=== PATIENT | female | born 2005 | race Caucasian/White ===

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

== ENCOUNTER 2024-09-17 01:00 | Emergency (ER) | payer MEDICAID, BC ==
[~2024-09-17] VITALS: Ht 162.6 cm; Wt 60.7 kg
--- NOTE | 2024-09-17 01:17 | ED.PDOC ---
History of Present Illness HPI Comments 18 y/o F presents with c/o chest pain, generalized weakness, lightheadedness, and posterior neck tingling sensation, today. Patient endorses on sudden and unprovoked onset of symptoms, while at work, today. She comments on pain being tight in quality and having no prior history of symptoms in the past or any significant medical history. Denies having any shortness of breath, palpitations, dizziness, fever, chills, or other associated symptoms or modifiers at this time. Chief Complaint: Dizziness Time Seen by MD: 01:10 Primary Care Provider: fox Reviewed Notes: Nurses Notes, Medications, Allergies Allergies: Coded Allergies: NO KNOWN ALLERGIES (Unverified , 01/05/22) Information Source: Patient Mode of Arrival: Wheelchair Severity: Moderate Timing: Hours Duration: Since onset Prehospital treatment: None Past Medical History PAST MEDICAL HISTORY: Denies Surgical History: Denies all surgeries [employer] History: No Pertinent [employer] History Family History Family History: Family hx of lung ana m Social History Smoker: Non-Smoker Alcohol: Denies ETOH Use Drugs: Denies Drug Use Lives In: Home All Other Systems: Reviewed and Negative (negative unless otherwise stated in HPI) Physical Exam General Appearance: No Apparent Distress, Normal HEENT: Normal ENT Inspection, Pharynx Normal, TMs Normal Neck: Full Range of Motion, Non-Tender, Normal, Normal Inspection Respiratory: Chest Non-Tender, Lungs Clear, No Accessory Muscle Use, No Respiratory Distress, Normal Breath Sounds Cardiovascular: No Edema, No JVD, No Murmur, No Gallop, Normal Peripheral Pulses, Regular Rate/Rhythm Breast Exam: Deferred Gastrointestinal: No Organomegaly, Non Tender, No Pulsatile Mass, Normal Bowel Sounds, Soft Genitalia: Deferred Pelvic: Deferred Rectal: Deferred Extremities: No calf tenderness, Normal capillary refill, Normal inspection, Normal range of motion, Non-tender, No pedal edema Musculoskeletal : Apperance: Normal Neurologic: Alert, glove turner and former automatic II-XII nml as Tested, No Motor Deficits, Normal Affect, Normal Mood, No Sensory Deficits Cerebellar Function: Normal Reflexes: Normal Skin: Dry, Normal Color, Warm Lymphatic: No Adenopathy Was a procedure done? Was a procedure done?: No EKG EKG : Pulse Rate (adult): 102 [place]: Normal Cardiac Rhythm: ST Block: None Hypertrophy: None ST: Normal Differential Dx Considerations may include: anxiety, panic attack, vasovagal response, DC, ACS, angina, costochondritis, pericarditis, viral syndrome, URI X-Ray, Labs, Meds, VS Vital Signs Date Time Temp Pulse Resp B/P (MAP) Pulse Ox O2 Delivery O2 Flow Rate FiO2 09/17/24 03:23 98.3 105 20 131/86 (101) 99 98.3 09/17/24 02:08 102 09/17/24 01:53 98.3 105 20 131/86 (101) 99 09/17/24 01:28 102 Lab Test 09/17/24 01:20 Range/Units White Blood Count 8.9 4.4-10.8 10^3/uL Red Blood Count 4.67 4.0-5.20 10^6/uL Hemoglobin 13.9 12.2-16.2 g/dL Hematocrit 41.0 36.0-46.0 % Mean Corpuscular Volume 87.8 80.0-100.0 fL Mean Corpuscular Hemoglobin 29.8 28.0-32.0 pg Mean Corpuscular Hemoglobin Concent 34.0 32.0-36.0 g/dL Red Cell Distribution Width 12.7 11.8-14.3 % Platelet Count 268 140-450 10^3/uL Mean Platelet Volume 7.9 6.9-10.8 fL Neutrophils (%) (Auto) 51.9 37.0-80.0 % Lymphocytes (%) (Auto) 36.3 10.0-50.0 % Monocytes (%) (Auto) 6.6 0.0-12.0 % Eosinophils (%) (Auto) 4.9 0.0-7.0 % Basophils (%) (Auto) 0.3 0.0-2.0 % Neutrophils # (Auto) 4.6 1.6-8.6 10 ^3/uL Lymphocytes # (Auto) 3.2 0.4-5.4 10 ^3/uL Monocytes # (Auto) 0.6 0-1.3 10 ^3/uL Eosinophils # (Auto) 0.4 0-0.8 10 ^3/uL Basophils # (Auto) 0 0-0.2 10 ^3/uL Nucleated Red Blood Cells 0.1 % Prothrombin Time 10.9 9.3-11.8 sec Prothrombin Time INR 1.03 0.9-1.15 D-Dimer, Quantitative 0.42 0.0-0.49 mg/L FEU Sodium Level 141 136-145 mmol/L Potassium Level 3.3 L 3.5-5.1 mmol/L Chloride Level 105 98-107 mmol/L Carbon Dioxide Level 25 20-31 mmol/L Anion Gap 11 5-15 Blood Urea Nitrogen 11 9-23 mg/dL Creatinine 0.80 0.550-1.02 mg/dL Glomerular Filtration Rate Calc 109 >90 mL/min BUN/Creatinine Ratio 13.8 10.0-20.0 Serum Glucose 95 74-106 mg/dL Calcium Level 10.2 8.7-10.4 mg/dL Magnesium Level 2.1 1.6-2.6 mg/dL Total Bilirubin 0.4 0.2-1.0 mg/dL Aspartate Amino Transferase (AST) 16 13-40 U/L Alanine Aminotransferase (ALT) 12 7-40 U/L Alkaline Phosphatase 71 46-116 U/L Troponin I High Sensitivity < 3 L </=34 ng/L Total Protein 7.4 5.7-8.2 g/dL Albumin 5.2 H 3.2-4.8 g/dL Beta HCG, Quantitative 0.7 L 1.5-4.2 mIU/mL Current Medications Medications (Trade) Dose Ordered Sig/Miguel Angel Route Start Time Stop Time Status Last Admin Potassium Chloride (Klor-Con Tablet) 20 meq ONCE ONCE PO 09/17/24 03:15 09/17/24 03:16 DC 09/17/24 03:19 Time of 1ST Reevaluation: 01:40 Reevaluation 1ST: Unchanged Time of 2ND Reevaluation: 02:30 Reevaluation 2ND: Improved Patient Education/Counseling: Diagnosis, Treatment Family Education/Counseling: No Family Present Departure 1 Departure Time of Disposition: 03:00 Impression: Primary Impression: Dizziness Additional Impression: Hypokalemia Disposition: 01 HOME / SELF CARE / HOMELESS Condition: Stable Discharged With: Self Comments Dizziness with Hypokalemia Chief Complaint: Dizziness and tingling in extremities History of Present Illness: 18-year-old female presents to the Emergency Department with a 4-hour history of dizziness and tingling sensation in her extremities. Patient reports ability to tolerate oral fluids. Symptoms are concerning for possible dehydration with associated electrolyte abnormality. Review of Systems: Constitutional: Reports dizziness Neurological: Reports tingling in extremities All other systems reviewed and negative Lab Results: Potassium: 3.3 mEq/L (Low) Complete Blood Count (CBC): Within normal limits Basic Metabolic Panel: Otherwise unremarkable Imaging and Other Relevant Results: No imaging studies documented Medical Decision Making: Summary Statement: 18-year-old female presenting with acute onset dizziness and peripheral tingling, found to have mild hypokalemia. Problem List: 1. Hypokalemia (K=3.3) 2. Dizziness 3. Paresthesias 4. Possible dehydration Differential Diagnosis: 1. Dehydration 2. Electrolyte imbalance 3. Anxiety 4. Vestibular dysfunction 5. Neurological disorder ED Course: Patient received oral potassium chloride supplementation. Symptoms improved during ED observation. Patient tolerating oral fluids well. After shared decision-making discussion, patient elected for discharge home with follow-up plan. Assessment and Plan: 1. Hypokalemia (K=3.3): - Administered oral potassium chloride supplementation - Patient showing clinical improvement - Follow up with PCP for repeat potassium check 2. Dizziness and Paresthesias: - Likely secondary to hypokalemia and possible dehydration - Symptoms improved during ED visit - Continue oral hydration at home 3. Disposition: - Discharge home with PCP follow-up - Strict return precautions given - Return to ED if symptoms worsen or new symptoms develop Billing Information: ICD-10: R42 - Dizziness and giddiness ICD-10: E87.6 - Hypokalemia ICD-10: R20.2 - Paresthesia Critical Care Note Critical Care Time?: No Stability Stability form required: No Heart Score Heart Score: Heart Score Response (Comments) Value History N/A 0 EKG N/A 0 Age N/A 0 Risk Factors N/A 0 Troponin N/A 0 Total 0 I personally scribed for BLANCHE SINGER MD ([email or web address]) on 09/17/24 at 01:17. Electronically submitted by Bon Gonzalez ([email or web address]). I personally scribed for BLANCHE SINGER MD ([email or web address]) on 09/17/24 at 02:08. Electronically submitted by Bon Gonzalez ([email or web address]). BLANCHE SINGER MD Sep 17, 2024 01:17
--- NOTE | 2024-09-17 01:29 | ECG ---
[facility] Test Date: 2024-09-17 Test Time: 01:28:06 Pat Name: RUFINO HUERTAS Department: ER Room: Gender: F Electronic Communications Technician: HOLLIS : 2005 Requested By: BLANCHE SINGER Order Number: [id number] Reading MD: Andres Monae Measurements Intervals [place] Rate: 102 P: 77 MA: 146 QRS: 85 QRSD: 98 T: 58 QT: 349 QTc: 455 Interpretive Statements Sinus tachycardia Electronically Signed On 09-23-2024 16:45:16 PST by Andres Monae Please click the below link to view image of tracing.
[2024-09-17 01:39] LABS: Basophils # (auto) 0 10 ^3/uL (0-0.2); Basophils % (auto) 0.3 % (0.0-2.0); Eosinophils # (auto) 0.4 10 ^3/uL (0-0.8); Eosinophils % (auto) 4.9 % (0.0-7.0); Hemoglobin 13.9 g/dL (12.2-16.2); Lymphocytes # (auto) 3.2 10 ^3/uL (0.4-5.4); Lymphocytes % (auto) 36.3 % (10.0-50.0); Mean Corpuscular Hemoglobin 29.8 pg (28.0-32.0); Mean Corpuscular Volume 87.8 fL (80.0-100.0); Monocytes # (auto) 0.6 10 ^3/uL (0-1.3); Monocytes % (auto) 6.6 % (0.0-12.0); Neutrophils # (auto) 4.6 10 ^3/uL (1.6-8.6); Neutrophils % (auto) 51.9 % (37.0-80.0); Nucleated Red Blood Cells % 0.1 %; Platelet Count (auto) 268 10^3/uL (140-450); Red Blood Cells 4.67 10^6/uL (4.0-5.20); Red Cell Distribution Width 12.7 % (11.8-14.3); White Blood Cell 8.9 10^3/uL (4.4-10.8)
[2024-09-17 01:53] LABS: INR 1.03 (0.9-1.15); Prothrombin Time 10.9 sec (9.3-11.8)
[2024-09-17 01:58] LABS: Alanine Aminotransferase 12 U/L (7-40); Alkaline Phosphatase 71 U/L (46-116); Anion Gap 11 (5-15); Aspartate Aminotransferase 16 U/L (13-40); BUN/Creatinine Ratio 13.8 (10.0-20.0); Bilirubin, Total 0.4 mg/dL (0.2-1.0); Blood Urea Nitrogen 11 mg/dL (9-23); Calcium 10.2 mg/dL (8.7-10.4); Carbon Dioxide 25 mmol/L (20-31); Chloride 105 mmol/L (98-107); Glucose 95 mg/dL (74-106); Magnesium 2.1 mg/dL (1.6-2.6); Sodium 141 mmol/L (136-145); Total Protein 7.4 g/dL (5.7-8.2)
[2024-09-17 02:34] LABS: Albumin 5.2 g/dL (3.2-4.8); Potassium 3.3 mmol/L (3.5-5.1)
[2024-09-17] MEDS: POTASSIUM CHL 20 Meq TABLET PO ONE (03:19)
[2024-09-17 03:23] VITALS: BP 131/86; PULSE 105; RESP 20; TEMP 98.3; O2SAT 99
== END 2024-09-17 03:24 | disposition home or self-care (01) ==
LOC: ER 01:00 → EDBD 01:00 → EEVIPCON 01:00 → ER 03:24
DX: R42 Dizziness and giddiness (principal); R10.2 Pelvic and perineal pain; E87.6 Hypokalemia
CPT/HCPCS: 36415; 80053; 83735; 84484; 84702; 85025; 85379; 85610; 93005